=== PATIENT | female | born 1960 | race Caucasian/White ===

== ENCOUNTER 2018-03-01 05:40 | Day surgery (SDC) | payer BC ==
[2018-03-01] MEDS ORDERED: LACTATED RINGERS 1,000 ML IV ONE ×2 (06:52→08:18)
[2018-03-01] MEDS ORDERED: fentaNYL 100 MCG/2 ML VIAL IVP ONE (07:34)
[2018-03-01] MEDS ORDERED: MIDAZOLAM 2 MG/2 ML VIAL IVP ONE (07:34)
[2018-03-01] MEDS ORDERED: fentaNYL 250 MCG/5 ML VIAL IVP ONE (07:34)
[2018-03-01 08:55] VITALS: BP 141/93
== END 2018-03-01 05:41 | disposition home or self-care (01) ==
LOC: SDS 05:40
PROVIDERS: ATTEND Surgery
PROC: 0DJD8ZZ Inspection of Lower Intestinal Tract, Via Natural or Artificial Opening Endoscopic (ICD-10-PCS; principal; 2018-03-01 07:43)
DX: K62.5 Hemorrhage of anus and rectum (principal); K64.8 Other hemorrhoids; K57.30 Diverticulosis of large intestine without perforation or abscess without bleeding; Z80.0 Family history of malignant neoplasm of digestive organs
CPT/HCPCS: 45378; J3010; J7120

== ENCOUNTER 2018-10-19 07:49 | Emergency (ER) | payer OTHER ==
[2018-10-19 07:55] VITALS: BP 153/97
[2018-10-19] MEDS ORDERED: BACITRACIN OINT TOP STA (08:26)
[2018-10-19] MEDS ORDERED: DOXYCYCLINE 100 MG TABLET PO STA (08:29)
[2018-10-19] MEDS ORDERED: cephALEXin 250 MG CAPSULE PO STA (08:29)
--- NOTE | 2018-10-19 08:36 | ED Physician Documentation ---
PD HPI SKIN - Stated complaint Stated Complaint: RT HAND SWOLLEN/RED - Chief complaint Chief Complaint: Wound - History obtained from History obtained from: Patient - History of Present Illness Timing - onset: How many days ago (2) Timing - duration: Days (2) Timing - details: Gradual onset Pain level max: 8 Pain level now: 8 Location: Other (R hand and ring finger) Quality / character: Painful, Discolored (red), Swelling. No: Itchy, Burning, Raised, Vesicular, Crusted, Draining Improved by: Other (nothing) Worsened by (comment): COMMENT (movement) Associated symptoms: No: Fever, Myalgias, Joint pain, Headache, Facial swelling, Dyspnea, Abd pain, N/V/D, Urinary sx - Additional information Additional information: Pt is right handed. Review of Systems Constitutional: denies: Fever, Chills GI: denies: Vomiting Musculoskeletal: denies: Neck pain, Back pain PD PAST MEDICAL HISTORY - Past Medical History Past Medical History: Yes Cardiovascular: None Respiratory: None Endocrine/Autoimmune: None GI: Colon polyps : None HEENT: None Psych: ADD/ADHD Musculoskeletal: None Derm: Eczema - Past Surgical History Past Surgical History: Yes General: Appendectomy, Colonoscopy HEENT: Rhinoplasty Derm: Other - Present Medications Home Medications: Ambulatory Orders Medication Instructions Recorded Confirmed Methylphenidate HCl [Ritalin] 60 mg PO DAILY 02/26/18 02/26/18 Cephalexin [Keflex] 500 mg PO Q6H #40 capsule 10/19/18 Doxycycline Hyclate 100 mg PO BID #20 capsule 10/19/18 - Allergies Allergies/Adverse Reactions: Allergies Allergy/AdvReac Type Severity Reaction Status Date / Time No Known Drug Allergies Allergy Verified 10/19/18 07:54 - Social History Does the pt smoke?: No Smoking Status: Never smoker Does the pt drink ETOH?: No Does the pt have substance abuse?: No - Immunizations Immunizations are current?: Yes Immunizations: TDAP current <10years - POLST Patient has POLST: No PD ED PE NORMAL - Vitals Vital signs reviewed: Yes - General General: Alert and oriented X 3, No acute distress - HEENT HEENT: Moist mucous membranes - Neck Neck: Supple, no meningeal sign - Cardiac Cardiac: RRR, No murmur - Respiratory Respiratory: No respiratory distress, Clear bilaterally - Derm Derm: Warm and dry - Extremities Extremities: Other (Swelling and erythema to the right ring finger, good range of motion present. The swelling extends to the dorsum of the right hand and stops at about the wrist. No palmar tenderness. No tenderness on the palmar aspect of the ring finger.) - Neuro Neuro: Alert and oriented X 3 Results - Vitals Vitals: Vital Signs - 24 hr 10/19/18 07:52 Temperature 36.9 C Heart Rate 79 Respiratory 16 Rate Blood Pressure 153/97 H O2 Saturation 98 Oxygen O2 Source Room air PD MEDICAL DECISION MAKING - ED course Complexity details: considered differential, d/w patient ED course: 58-year-old male with cellulitis of the right hand, unclear what happened, may have started when he trimmed the nail too short or scrapes working in the barn or changing salt water tanks in his aquariums. No fevers. No evidence of layne inable abscess. Given the salt water exposure will place on doxycycline as well as Keflex. Will give him 24 hours on antibiotics and see how he progresses. Patient counseled regarding signs and symptoms for which I believe and urgent re-evaluation would be necessary. Patient with good understanding of and agreement to plan and is comfortable going home at this time This document was made in part using voice recognition software. While efforts are made to proofread this document, sound alike and grammatical errors may occur. Departure - Departure Disposition: 01 Home, Self Care Clinical Impression: Cellulitis Qualifiers: Site of cellulitis: extremity Site of cellulitis of extremity: upper extremity Laterality: right Qualified Code(s): L03.113 - Cellulitis of right upper limb Condition: Good Instructions: ED Infec Skin Cellulitis Follow-Up: Florin Lea MD [Primary Care Provider] - Within 3 Days (for wound check ) Prescriptions: Cephalexin [Keflex] 500 mg PO Q6H #40 capsule Doxycycline Hyclate 100 mg PO BID #20 capsule Comments: Take all antibiotics until gone. Return if you worsen. This should improve over the next 24 hours, if it is worsening after that time or spreads up the arm prior to that or you develop fevers, return immediately. Discharge Date/Time: 10/19/18 08:41
== END 2018-10-19 08:41 | disposition home or self-care (01) ==
LOC: EDSEX → ED 07:49
DX: L03.113 Cellulitis of right upper limb (principal)
CPT/HCPCS: 99283; A9270

== ENCOUNTER 2018-10-22 12:52 | Emergency (ER) | payer OTHER ==
[2018-10-22] MEDS ORDERED: LIDOCAINE 2% 10 ML MDV SUBQ STA (15:07)
--- NOTE | 2018-10-22 15:26 | ED Physician Documentation ---
History of Present Illness - Stated complaint Stated Complaint: RT HAND RING FINGER PX - Chief complaint Chief Complaint: Ext Problem - History obtained from History obtained from: Patient - History of Present Illness Pain level max: 7 Pain level now: 3 - Additonal information Additional information: 58-year-old male seen here recently for cellulitis of the finger, was improving on antibiotics but still has redness to the distal portion of the right ring finger. No fevers. Worse with movement and better with rest. Review of Systems Constitutional: denies: Fever, Chills GI: denies: Vomiting Musculoskeletal: denies: Neck pain, Back pain Neurologic: denies: Headache PD PAST MEDICAL HISTORY - Past Medical History Cardiovascular: None Respiratory: None Endocrine/Autoimmune: None GI: Colon polyps : None HEENT: None Psych: ADD/ADHD Musculoskeletal: None Derm: Eczema - Past Surgical History Past Surgical History: Yes General: Appendectomy, Colonoscopy HEENT: Rhinoplasty Derm: Other - Present Medications Home Medications: Ambulatory Orders Medication Instructions Recorded Confirmed Methylphenidate HCl [Ritalin] 60 mg PO DAILY 02/26/18 02/26/18 Cephalexin [Keflex] 500 mg PO Q6H #40 capsule 10/19/18 Doxycycline Hyclate 100 mg PO BID #20 capsule 10/19/18 - Allergies Allergies/Adverse Reactions: Allergies Allergy/AdvReac Type Severity Reaction Status Date / Time No Known Drug Allergies Allergy Verified 10/22/18 13:00 - Social History Does the pt smoke?: No Smoking Status: Never smoker Does the pt drink ETOH?: No Does the pt have substance abuse?: No - Immunizations Immunizations are current?: Yes Immunizations: TDAP current <10years - POLST Patient has POLST: No PD ED PE NORMAL - Vitals Vital signs reviewed: Yes - General General: Alert and oriented X 3, No acute distress - HEENT HEENT: Moist mucous membranes - Neck Neck: Supple, no meningeal sign - Cardiac Cardiac: RRR - Respiratory Respiratory: No respiratory distress, Clear bilaterally - Derm Derm: Warm and dry - Extremities Extremities: Other (R ring finger - Swelling and erythema surrounding the nail as well extending to approximately chcf up the mid phalanx. There is no tenderness along the tendon sheath. No palmar tenderness. Neurovascularly intact) - Neuro Neuro: Alert and oriented X 3 Results - Vitals Vitals: Vital Signs - 24 hr 10/22/18 10/22/18 13:00 16:06 Temperature 36.6 C 36.6 C Heart Rate 80 81 Respiratory 16 16 Rate Blood Pressure 175/99 H 168/89 H O2 Saturation 100 100 Oxygen O2 Source Room air Procedures - Abscess I&D (location) r 4th digit Preparation: Chlorhexadine, Lidocaine 2 % (digital block) Incision: Incised with scalpel, Purulent drainage, Irrigated Other: Pt tolerated well, Antibiotic prescribed PD MEDICAL DECISION MAKING - ED course Complexity details: reviewed old records, considered differential, d/w patient ED course: Patient with a right ring finger cellulitis that is improving on now has an abscess under the fingernail as well as paronychias. These were drained. Tolerated well. Will continue antibiotics and warm soaks at home. No evidence of foreign body. Patient counseled regarding signs and symptoms for which I believe and urgent re-evaluation would be necessary. Patient with good understanding of and agreement to plan and is comfortable going home at this time This document was made in part using voice recognition software. While efforts are made to proofread this document, sound alike and grammatical errors may occur. Departure - Departure Disposition: Home, Self Care Clinical Impression: Paronychia, Subungual abscess Cellulitis Qualifiers: Site of cellulitis: unspecified site Qualified Code(s): L03.90 - Cellulitis, unspecified Condition: Good Instructions: ED Abscess IandD, ED Infec Skin Cellulitis Follow-Up: your,doctor in 3-4 days for a wound check. [Other] Comments: Continue the antibiotics at home. Return if they worsen. Soak the area 2-3 times daily and clean warm water. This will help it continue to drain. Discharge Date/Time: 10/22/18 16:06
[2018-10-22 16:07] VITALS: BP 168/89
== END 2018-10-22 16:06 | disposition home or self-care (01) ==
LOC: ED 12:52
DX: L03.011 Cellulitis of right finger (principal)
CPT/HCPCS: 10060; 99282; 99283

== ENCOUNTER 2022-08-22 16:11 | Outpatient (CLI) | payer OTHER | END 2022-08-22 16:12 | disposition critical access hospital (66) | LOC: EMS 16:11 | DX: R55 Syncope and collapse (principal) | CPT/HCPCS: A0425; A0427 ==

== ENCOUNTER 2022-08-22 16:46 | Emergency (ER) | payer OTHER ==
--- NOTE | 2022-08-22 16:55 | ED Physician Documentation ---
History of Present Illness - Stated complaint Stated Complaint: SEIZURE - Chief complaint Chief Complaint: Fever - History obtained from History obtained from: Patient, EMS - Additonal information Additional information: 62-year-old gentleman with history of hypertension on metoprolol, otherwise very healthy with no history of seizure disorder. He was feeling ill all day with nausea and just kind of out of it. He laid on the couch and then had a reported seizure. It is not well described to me but paramedics do report some shaking without posturing and then unknown time of confusion. And then reportedly had some hypotension down to 80/60 or so that has responded to IV fluids. At this point he feels a little out of it and he is having chills. No headache. Review of Systems Constitutional: reports: Chills Nose: denies: Rhinorrhea / runny nose, Congestion Throat: denies: Sore throat Cardiac: denies: Chest pain / pressure, Palpitations Respiratory: denies: Dyspnea, Cough GI: reports: Nausea. denies: Abdominal Pain, Vomiting PD PAST MEDICAL HISTORY - Past Medical History Cardiovascular: None Respiratory: None Endocrine/Autoimmune: None GI: Colon polyps : None HEENT: None Psych: ADD/ADHD Musculoskeletal: None Derm: Eczema - Past Surgical History Past Surgical History: Yes General: Appendectomy, Colonoscopy HEENT: Rhinoplasty Derm: Other - Present Medications Home Medications: Ambulatory Orders Medication Instructions Recorded Confirmed Methylphenidate HCl [Ritalin] 60 mg PO DAILY 02/26/18 02/26/18 Doxycycline Hyclate 100 mg PO BID #20 capsule 10/19/18 cephALEXin [Keflex] 500 mg PO Q6H #40 capsule 10/19/18 - Allergies Allergies/Adverse Reactions: Allergies Allergy/AdvReac Type Severity Reaction Status Date / Time No Known Drug Allergies Allergy Verified 10/22/18 13:00 - Social History Does the pt smoke?: No Smoking Status: Never smoker Does the pt drink ETOH?: No Does the pt have substance abuse?: No - Immunizations Immunizations are current?: Yes Immunizations: TDAP current <10years - POLST Patient has POLST: No PD ED PE NORMAL - Vitals Vital signs reviewed: Yes - General General: Alert and oriented X 3, No acute distress - HEENT HEENT: PERRL, EOMI - Neck Neck: Supple, no meningeal sign, No bony TTP - Cardiac Cardiac: RRR, No murmur - Respiratory Respiratory: No respiratory distress, Clear bilaterally - Abdomen Abdomen: Normal bowel sounds, Soft, Non tender - Back Back: No CVA TTP, No spinal TTP - Derm Derm: Normal color, Warm and dry - Extremities Extremities: No edema, No calf tenderness / cord - Neuro Neuro: Alert and oriented X 3, No motor deficit, No sensory deficit, Normal speech Eye Opening: Spontaneous Motor: Obeys Commands Verbal: Oriented GCS Score: 15 - Psych Psych: Normal mood, Normal affect Results - Vitals Vitals: Vital Signs - 24 hr 08/22/22 16:48 Temperature 36.6 C Heart Rate 59 L Respiratory 18 Rate Blood Pressure 122/96 H O2 Saturation 100 Oxygen O2 Source Room air - EKG (time done) 1704 Rate: Rate (enter#) (52) Rhythm: NSR [place]: Normal Intervals: Normal [place], Other (IVCD) Ischemia: Normal ST segments Computer interpretation: Agree with computer - Labs Labs: Laboratory Tests 08/22/22 08/22/22 08/22/22 17:11 17:11 17:11 WBC 8.4 RBC 4.31 L Hgb 13.2 L Hct 38.9 L MCV 90.3 MCH 30.6 MCHC 33.9 RDW 12.6 Plt Count 241 MPV 11.1 Neut # (Auto) 7.4 H Lymph # (Auto) 0.5 L [place] # (Auto) 0.4 Eos # (Auto) 0.0 Baso # (Auto) 0.0 Absolute Nucleated RBC 0.00 Nucleated RBC % 0.0 Sodium 136 Potassium 4.0 Chloride 102 Carbon Dioxide 24 Anion Gap 10.0 BUN 14 Creatinine 1.1 Estimated GFR (MDRD) 68 L Glucose 143 H Lactic Acid 4.0 H* Calcium 9.1 Magnesium 1.9 Total Bilirubin 0.8 AST 24 ALT 17 Alkaline Phosphatase 37 L Total Protein 6.4 L Albumin 3.6 Globulin 2.8 Albumin/Globulin Ratio 1.3 Prolactin 08/22/22 17:11 WBC RBC Hgb Hct MCV MCH MCHC RDW Plt Count MPV Neut # (Auto) Lymph # (Auto) [place] # (Auto) Eos # (Auto) Baso # (Auto) Absolute Nucleated RBC Nucleated RBC % Sodium Potassium Chloride Carbon Dioxide Anion Gap BUN Creatinine Estimated GFR (MDRD) Glucose Lactic Acid Calcium Magnesium Total Bilirubin AST ALT Alkaline Phosphatase Total Protein Albumin Globulin Albumin/Globulin Ratio Prolactin 18.22 - Rads (name of study) CTHead Radiology: Final report received, EMP read indepedently PD Medical Decision Making - ED course Complexity details: d/w family (Further independent history was taken from his /spouse who arrived after initial evaluation. He started bupropion about 6 weeks ago and about 2 weeks ago the dose was increased.) ED course: 62-year-old gentleman presents after new onset seizure today without history of same. He does not use alcohol. He is on bupropion and with a recent dose increase and this is likely to be causative. He did have an elevated lactate and prolactin level here consistent with true seizure. Discussed with him and his spouse that they should stop bupropion pending follow-up. Discussed driving limitations. Departure - Departure Disposition: 01 Home, Self Care Clinical Impression: Seizure Condition: Good Record reviewed to determine appropriate education?: Yes Instructions: ED Seizure New Onset Unk Cause Comments: As discussed, the most likely cause of your seizure today was the new medication, bupropion which is known to cause seizures. You should stop this medication and follow-up with your prescriber for alternative treatments for your anxiety and/or depression. As discussed, per [place] state law you are not to drive for 6 months. Your primary care physician may also elect to refer you to a neurologist for further work-up. Return if worse.
[2022-08-22 17:16] LABS: BASOPHILS % (AUTO) 0.2 %; EOSINOPHILS % (AUTO) 0.5 %; HCT - HEMATOCRIT 38.9 % (42.0-52.0); HGB - HEMOGLOBIN 13.2 g/dL (14.0-18.0); LYMPHOCYTES # (AUTO) 0.5 10^3/uL (1.5-3.5); MEAN CORPUSCULAR HEMOGLOBIN 30.6 pg (27.0-31.0); MEAN CORPUSCULAR HGB CONC 33.9 g/dL (32.0-36.0); MEAN CORPUSCULAR VOLUME 90.3 fL (80.0-94.0); MEAN PLATELET VOLUME 11.1 fL (7.4-11.4); MONOCYTES # (AUTO) 0.4 10^3/uL (0.0-1.0); MONOCYTES % (AUTO) 4.4 %; NEUTROPHILS # (AUTO) 7.4 10^3/uL (1.5-6.6); NEUTROPHILS % (AUTO) 88.2 %; PLT - PLATELET COUNT 241 10^3/uL (130-450); RED BLOOD COUNT 4.31 10^6/uL (4.70-6.10); RED CELL DISTRIBUTION WIDTH 12.6 % (12.0-15.0); WHITE BLOOD COUNT 8.4 x10^3/uL (4.8-10.8)
[2022-08-22 17:35] LABS: ALBUMIN 3.6 g/dL (3.2-5.5); ALBUMIN/GLOBULIN RATIO 1.3 (1.0-2.2); BILIRUBIN,TOTAL 0.8 mg/dL (0.2-1.0); CALCIUM 9.1 mg/dL (8.5-10.3); CREATININE 1.1 mg/dL (0.6-1.2); MAGNESIUM 1.9 mg/dL (1.7-2.8); TOTAL PROTEIN 6.4 g/dL (6.7-8.2)
--- NOTE | 2022-08-22 18:05 | CT Report ---
PROCEDURE: HEAD WO INDICATIONS: Seizure TECHNIQUE: Noncontrast 4.5 mm thick angled axial sections acquired from the foramen magnum to the vertex. For r adiation dose reduction, the following was used: automated exposure control, adjustment of mA and/or kV according to patient size. COMPARISON: None. FINDINGS: Image quality: Excellent. CSF spaces: Basal cisterns are patent. No extra-axial fluid collections. Ventricles are normal in size and shape. Brain: No midline shift. No intracranial masses or hemorrhage. May-white matter interface is norm al. Skull and face: Calvarium and visualized facial bones are intact, without suspicious lesions. Sinuses: Visualized sinuses and mastoids are clear. IMPRESSION: No acute finding. Reviewed by: Merlin Montes De Oca MD on 08/22/2022 6:04 PM [facility] Approved by: Merlin Montes De Oca MD on 08/22/2022 6:04 PM [facility] Station ID: [id number]
[2022-08-22] MEDS ORDERED: diazePAM 5 MG TABLET PO STA (18:14)
[2022-08-22 18:34] VITALS: BP 129/83
== END 2022-08-22 18:41 | disposition home or self-care (01) ==
LOC: EDUNIT# → ED 16:46
DX: R56.9 Unspecified convulsions (principal); Z79.899 Other long term (current) drug therapy
CPT/HCPCS: 36415; 70450; 80053; 83605; 83735; 84146; 85025; 93005; 99284; A9270

== ENCOUNTER 2023-02-25 20:05 | Outpatient (CLI) | payer OTHER | END 2023-02-25 23:59 | disposition EMS.NT | LOC: EMS 20:05 | DX: S09.93XA Unspecified injury of face, initial encounter (principal); W21.07XA Struck by softball, initial encounter; Y93.64 Activity, baseball; Y92.320 Baseball field as the place of occurrence of the external cause ==